=== PATIENT | female | born 1990 | race Caucasian/White ===

== ENCOUNTER 2019-03-25 10:32 | Emergency (ER) | payer SELFPAY ==
[~2019-03-25] VITALS: Ht 152.4 cm; Wt 53.5 kg
[2019-03-25] MEDS ORDERED: MORPHINE SULFATE 4 MG/ML VIAL. IV ONE ×2 (10:45→12:15)
[2019-03-25] MEDS ORDERED: ONDANSETRON PF 4 MG/2 ML VIAL. IV ONE (10:45)
--- NOTE | 2019-03-25 10:49 | PHYS DOC ---
Adult General Chief Complaint Chief Complaint: PELVIC PAIN HPI HPI Patient is a 28 year old female with a history of uterine cancer in 2008 presents to the ED complaining of right lower abdominal pain 3 days ago. Descri bes the pain as sharp. Rates the pain as 9 out of 10. States she took otc pain medications without relief. Denies vaginal discharge/bleeding, dysuria, hematuria, injury, diarrhea, nausea/vomiting, chest pain, shortness of breath, STD exposure or fever. Review of Systems Review of Systems Constitutional: Denies fever or chills [] Eyes: Denies change in visual acuity, redness, or eye pain [] HENT: Denies nasal congestion or sore throat [] Respiratory: Denies cough or shortness of breath [] Cardiovascular: No additional information not addressed in HPI [] GI: Complains of abdominal pain. Denies nausea, vomiting, bloody stools or diar odilia [] : Denies dysuria or hematuria [] Musculoskeletal: Denies back pain or joint pain [] Integument: Denies rash or skin lesions [] Neurologic: Denies headache, focal weakness or sensory changes [] All other systems were reviewed and found to be within normal limits, except as documented in this note. Current Medications Current Medications Current Medications Medications (Trade) Dose Ordered Sig/Daisha Start Time Stop Time Status Last Admin Dose Admin Ketorolac Tromethamine (Toradol 30mg Vial) 30 mg 1X ONCE 03/25/19 13:30 03/25/19 13:31 DC 03/25/19 13:48 30 MG Morphine Sulfate (Morphine Sulfate) 4 mg 1X ONCE 03/25/19 12:15 03/25/19 12:16 DC 03/25/19 12:10 4 MG Ondansetron HCl (Zofran) 4 mg 1X ONCE 03/25/19 10:45 03/25/19 10:57 DC 03/25/19 11:14 4 MG Allergies Allergies Allergies Coded Allergies Type Severity Reaction Last Updated Verified No Known Drug Allergies 03/25/19 No Physical Exam Physical Exam Constitutional: Well developed, well nourished, no acute distress, non-toxic appearance. [] HENT: Normocephalic, atraumatic Eyes: PERRLA, EOMI, conjunctiva normal, no discharge. [] Neck: Normal range of motion, no tenderness, supple, no stridor. [] Cardiovascular:Heart rate regular rhythm, no murmur [] Lungs & Thorax: Bilateral breath sounds clear to auscultation [] Abdomen: Bowel sounds normal, soft, mild diffuse lower abdominal tenderness, no masses, no pulsatile masses. [] : refused. Skin: Warm, dry, no erythema, no rash. [] Back: No tenderness, no CVA tenderness. [] Extremities: No tenderness, no cyanosis, no clubbing, ROM intact, no edema. [] Neurologic: Alert and oriented X 3, normal motor function, normal sensory function, no focal deficits noted. [] Psychologic: Affect normal, judgement normal, mood normal. [] Current Patient Data Vital Signs Vital Signs Date Time Temp Pulse Resp B/P (MAP) Pulse Ox O2 Delivery O2 Flow Rate FiO2 03/25/19 14:15 86 16 100/60 (73) 98 Room Air 03/25/19 10:46 98.2 98.2 Lab Values Laboratory Tests Test 03/25/19 10:40 03/25/19 10:42 03/25/19 11:15 03/25/19 11:50 Urine Collection Type Unknown Urine Color Yellow Urine Clarity Clear Urine pH 6.0 Urine Specific Holden >=1.030 Urine Protein Negative mg/dL (NEG-TRACE) Urine Glucose (UA) Negative mg/dL (NEG) Urine Ketones (Stick) Negative mg/dL (NEG) Urine Blood Negative (NEG) Urine Nitrite Negative (NEG) Urine Bilirubin Negative (NEG) Urine Urobilinogen Dipstick 0.2 mg/dL (0.2 mg/dL) Urine Leukocyte Esterase Trace (NEG) Urine RBC 0 /HPF (0-2) Urine WBC 5-10 /HPF (0-4) Urine Squamous Epithelial Cells Many /LPF Urine Bacteria Mod /HPF (0-FEW) Urine Hyaline Casts Few /HPF POC Urine HCG, Qualitative Hcg negative (Negative) White Blood Count 7.8 x10^3/uL (4.0-11.0) Red Blood Count 4.43 x10^6/uL (3.50-5.40) Hemoglobin 14.1 g/dL (12.0-15.5) Hematocrit 41.3 % (36.0-47.0) Mean Corpuscular Volume 93 fL (79-100) Mean Corpuscular Hemoglobin 32 pg (25-35) Mean Corpuscular Hemoglobin Concent 34 g/dL (31-37) Red Cell Distribution Width 12.5 % (11.5-14.5) Platelet Count 314 x10^3/uL (140-400) Neutrophils (%) (Auto) 64 % (31-73) Lymphocytes (%) (Auto) 26 % (24-48) Monocytes (%) (Auto) 9 % (0-9) Eosinophils (%) (Auto) 1 % (0-3) Basophils (%) (Auto) 1 % (0-3) Neutrophils # (Auto) 5.0 x10^3uL (1.8-7.7) Lymphocytes # (Auto) 2.0 x10^3/uL (1.0-4.8) Monocytes # (Auto) 0.7 x10^3/uL (0.0-1.1) Eosinophils # (Auto) 0.0 x10^3/uL (0.0-0.7) Basophils # (Auto) 0.0 x10^3/uL (0.0-0.2) Sodium Level 140 mmol/L (136-145) Potassium Level 3.6 mmol/L (3.5-5.1) Chloride Level 103 mmol/L (98-107) Carbon Dioxide Level 27 mmol/L (21-32) Anion Gap 10 (6-14) Blood Urea Nitrogen 9 mg/dL (7-20) Creatinine 0.8 mg/dL (0.6-1.0) Estimated GFR (Cockcroft-Gault) 84.2 BUN/Creatinine Ratio 11 (6-20) Glucose Level 94 mg/dL (70-99) Calcium Level 9.6 mg/dL (8.5-10.1) Total Bilirubin 0.3 mg/dL (0.2-1.0) Aspartate Amino Transferase (AST) 19 U/L (15-37) Alanine Aminotransferase (ALT) 23 U/L (14-59) Alkaline Phosphatase 105 U/L (46-116) Total Protein 7.8 g/dL (6.4-8.2) Albumin 4.4 g/dL (3.4-5.0) Albumin/Globulin Ratio 1.3 (1.0-1.7) Lipase 155 U/L (73-393) Laboratory Tests 03/25/19 11:15 Laboratory Tests 03/25/19 11:50 EKG EKG [] Radiology/Procedures Radiology/Procedures []PROCEDURE: CT ABDOMEN PELVIS WO CONTRAST EXAM: CT Abdomen and Pelvis without IV contrast CLINICAL HISTORY: Diffuse lower abdominal pain. COMPARISON: none TECHNIQUE: Helical CT of the abdomen and pelvis without intravenous contrast. Axial, coronal and sagittal reformatted images were generated. PQRS compliance statement - One or more of the following individualized dose reduction techniques were utilized for this study: 1. Automated exposure control 2. Adjustment of the mA and/or kV according to patient size 3. Use of iterative reconstruction technique FINDINGS: Lack of intravenous contrast limits evaluation of solid organs, vasculature, and lymph nodes. Lower chest: Lung bases are clear. Abdomen and Pelvis: No focal liver lesion. Liver measures 17.4 cm in length. Accounting for postcholecystectomy state, no biliary ductal dilatation. Calcified granuloma are seen within the spleen. Adrenal glands and pancreas are unremarkable. No renal tract calculus. No focal renal lesion. No hydronephrosis. Mild diffuse thickening of the bladder wall may be seen with cystitis. Appendix is not seen. Moderate colonic stool content is seen. No small or large bowel dilatation. No evidence for bowel obstruction. Right lower quadrant surgical clips are seen. A 4 x 3.1 cm nodular density is seen in the left adnexa, adjacent to the left external iliac vessels. No abdominal or pelvic lymphadenopathy. No abdominal or pelvic ascites. Bones: Osseous structures are grossly unremarkable. IMPRESSION: 1. Diffuse bladder wall thickening may be seen with cystitis. 2. No renal tract calculus. 3. 4 cm left adnexal nodular density with high density component to represent hemorrhagic cyst. This can be further assessed by pelvic ultrasound. 4. Appendix is not seen. PROCEDURE: PELVIS W/TV Pelvic ultrasound, 03/25/2019: HISTORY: Pelvic mass, abnormal CT study, pelvic pain Transabdominal and transvaginal scans were obtained. The uterus is surgically absent. No ovaries were visualized on the transvaginal scans. The right ovary measures 3.4 x 1.5 x 3.1 cm. It contains a couple of tiny follicular cysts. There is blood flow in the right ovary. The left ovary measures 3.6 x 2.6 x 4.2 cm. It contains a smooth rounded 2.5 cm nonvascular mass. This mass contains anechoic and isoechoic components. This probably represents a complicated cyst such as a hemorrhagic cyst. There is blood flow in the left ovary surrounding this nodule. There is a small amount of free fluid evident in the left adnexal region adjacent to the ovary. The adnexal regions are otherwise unremarkable. IMPRESSION: 1. Status post hysterectomy. 2. Small complex cyst in the left ovary. Sonographic follow-up is suggested. 3. Small amount of free fluid in the left pelvis. Course & Med Decision Making Course & Med Decision Making Pertinent Labs and Imaging studies reviewed. (See chart for details) []Discussed lab and imaging findings with patient. Patient's pain improved in the ED. On reexamination, abdomen is soft nontender nondistended. No peritoneal signs. Tolerating by mouth. Discussed symptomatic treatment outpatient. Discussed follow-up with [facility] this week. Provided contact information/ education. Discussed reasons to return to the ED. Patient understands and agrees with plan. Dragon Disclaimer Dragon Disclaimer This electronic medical record was generated, in whole or in part, using a voice recognition dictation system. Departure Departure Impression: Primary Impression: Hemorrhagic ovarian cyst Additional Impression: Urinary tract infection Disposition: 01 HOME, SELF-CARE Condition: IMPROVED Referrals: ARINA FAROOQ Jr, MD Patient Instructions: Ovarian Cyst, Urinary Tract Infection Scripts Ciprofloxacin Hcl (CIPRO) 500 Mg Tablet 1 TAB PO BID, #20 TAB Prov: RAINA VOGT 03/25/19 Naproxen (NAPROSYN) 500 Mg Tablet 1 TAB PO BID, #30 TAB 0 Refills Prov: RAINA VOGT 03/25/19 Problem Qualifiers RAINA VOGT Mar 25, 2019 10:49
[2019-03-25 11:14] LABS: BILIRUBIN,URINE NEGATIVE (NEG); CLARITY,URINE CLEAR; COLOR,URINE YELLOW; NITRITE,URINE NEGATIVE (NEG); PROTEIN,URINE NEGATIVE (NEG-TRACE); UROBILINOGEN,URINE 0.2 mg/dL (0.2 mg/dL)
--- NOTE | 2019-03-25 11:17 | RAD ---
EXAM: CT Abdomen and Pelvis without IV contrast CLINICAL HISTORY: Diffuse lower abdominal pain. COMPARISON: none TECHNIQUE: Helical CT of the abdomen and pelvis without intravenous contrast. Axial, coronal and sagittal reformatted images were generated. PQRS compliance statement - One or more of the following individualized dose reduction techniques were utilized for this study: 1. Automated exposure control 2. Adjustment of the mA and/or kV according to patient size 3. Use of iterative reconstruction technique FINDINGS: Lack of intravenous contrast limits evaluation of solid organs, vasculature, and lymph nodes. Lower chest: Lung bases are clear. Abdomen and Pelvis: No focal liver lesion. Liver measures 17.4 cm in length. Accounting for postcholecystectomy state, no biliary ductal dilatation. Calcified granuloma are seen within the spleen. Adrenal glands and pancreas are unremarkable. No renal tract calculus. No focal renal lesion. No hydronephrosis. Mild diffuse thickening of the bladder wall may be seen with cystitis. Appendix is not seen. Moderate colonic stool content is seen. No small or large bowel dilatation. No evidence for bowel obstruction. Right lower quadrant surgical clips are seen. A 4 x 3.1 cm nodular density is seen in the left adnexa, adjacent to the left external iliac vessels. No abdominal or pelvic lymphadenopathy. No abdominal or pelvic ascites. Bones: Osseous structures are grossly unremarkable. IMPRESSION: 1. Diffuse bladder wall thickening may be seen with cystitis. 2. No renal tract calculus. 3. 4 cm left adnexal nodular density with high density component to represent hemorrhagic cyst. This can be further assessed by pelvic ultrasound. 4. Appendix is not seen. Electronically signed by: Compa Roe MD (03/25/2019 11:14 AM) [id number]
[2019-03-25 11:24] LABS: BASO % 1 % (0-3); EOS % 1 % (0-3); HEMATOCRIT 41.3 % (36.0-47.0); HEMOGLOBIN 14.1 g/dL (12.0-15.5); LYMPH % 26 % (24-48); MEAN CORPUSCULAR HEMOGLOBIN 32 pg (25-35); MEAN CORPUSCULAR HGB CONC 34 g/dL (31-37); MEAN CORPUSCULAR VOLUME 93 fL (79-100); MONO # 0.7 x10^3/uL (0.0-1.1); MONO % 9 % (0-9); NEUT % 64 % (31-73); PLATELET COUNT 314 x10^3/uL (140-400); RED BLOOD COUNT 4.43 x10^6/uL (3.50-5.40); RED CELL DISTRIBUTION WIDTH 12.5 % (11.5-14.5); WHITE BLOOD COUNT 7.8 x10^3/uL (4.0-11.0)
[2019-03-25 11:28] LABS: SQUAMOUS EPITHELIAL CELL,UR MANY /LPF
[2019-03-25 11:29] LABS: BACTERIA,URINE MOD /HPF (0-FEW); HYALINE CASTS, URINE FEW /HPF; RBC,URINE 0 /HPF (0-2)
[2019-03-25 12:27] LABS: CALCIUM 9.6 mg/dL (8.5-10.1); CREATININE 0.8 mg/dL (0.6-1.0); GFR 84.2; POTASSIUM 3.6 mmol/L (3.5-5.1)
[2019-03-25 12:32] LABS: ALBUMIN 4.4 g/dL (3.4-5.0); ALBUMIN/GLOBULIN RATIO 1.3 (1.0-1.7); TOTAL BILIRUBIN 0.3 mg/dL (0.2-1.0); TOTAL PROTEIN 7.8 g/dL (6.4-8.2)
[2019-03-25] MEDS ORDERED: KETOROLAC 30 MG/ML VIAL. IV ONE (13:30)
--- NOTE | 2019-03-25 13:47 | RAD ---
Pelvic ultrasound, 03/25/2019: HISTORY: Pelvic mass, abnormal CT study, pelvic pain Transabdominal and transvaginal scans were obtained. The uterus is surgically absent. No ovaries were visualized on the transvaginal scans. The right ovary measures 3.4 x 1.5 x 3.1 cm. It contains a couple of tiny follicular cysts. There is blood flow in the right ovary. The left ovary measures 3.6 x 2.6 x 4.2 cm. It contains a smooth rounded 2.5 cm nonvascular mass. This mass contains anechoic and isoechoic components. This probably represents a complicated cyst such as a hemorrhagic cyst. There is blood flow in the left ovary surrounding this nodule. There is a small amount of free fluid evident in the left adnexal region adjacent to the ovary. The adnexal regions are otherwise unremarkable. IMPRESSION: 1. Status post hysterectomy. 2. Small complex cyst in the left ovary. Sonographic follow-up is suggested. 3. Small amount of free fluid in the left pelvis. Electronically signed by: Mckay Padilla MD (03/25/2019 1:44 PM) [facility]
[2019-03-25 14:15] VITALS: BP 100/60
[2019-03-25] MEDS ORDERED: NAPR-683 PO (14:20)
[2019-03-25] MEDS ORDERED: CIPR500T94 PO (14:20)
== END 2019-03-25 14:32 | disposition home or self-care (01) ==
LOC: ER 10:32
DX: N83.202 Unspecified ovarian cyst, left side (principal); N39.0 Urinary tract infection, site not specified; Z90.710 Acquired absence of both cervix and uterus
CPT/HCPCS: 36415; 74176; 76830; 76856; 80053; 81001; 81025; 83690; 85025; 96374; 96375; 96376; 99284; J1885; J2270; J2405